=== PATIENT | male | born 1960 ===

== ENCOUNTER → 2018-02-25 | Outpatient (CLI) | payer OTHER ==
[~2018-02-25] MED LIST: DOBUTAMINE/D5W PMX 250 ML IV ONE; DOBUTAMINE/D5W PMX 250 ML ONE; PLEASE ENTER HEIGHT AND WEIGHT MC SCH; SODIUM CHLORIDE 0.9% 500 ML IVF SCH
== END | disposition home or self-care (01) ==
LOC: CARD 10:18 → EDSTATUS 11:00 → CARD 11:27
PROVIDERS: ATTEND Family Medicine
DX: R07.89 Other chest pain (principal); I10 Essential (primary) hypertension; G47.33 Obstructive sleep apnea (adult) (pediatric); E78.00 Pure hypercholesterolemia, unspecified; M25.562 Pain in left knee; G89.29 Other chronic pain
CPT/HCPCS: 93017; C8930; Q9957